=== PATIENT | female | born 1995 | race African-American/Black ===

== ENCOUNTER 2017-09-14 11:41 | Emergency (ER) | payer OTHER ==
[~2017-09-14] VITALS: Ht 162.6 cm; Wt 115.9 kg
[2017-09-14] MEDS ORDERED: IBUPROFEN 800 MG TABLET PO ONE (12:45)
[2017-09-14 12:49] VITALS: BP 119/63
== END 2017-09-14 12:58 | disposition home or self-care (01) ==
LOC: EMS 11:43
DX: K64.4 Residual hemorrhoidal skin tags (principal); R03.0 Elevated blood-pressure reading, without diagnosis of hypertension; Z91.018 Allergy to other foods
CPT/HCPCS: 99283

== ENCOUNTER 2024-07-10 20:08 | Emergency (ER) | payer OTHER ==
[~2024-07-10] VITALS: Ht 165.1 cm; Wt 100.0 kg
[2024-07-10 20:19] VITALS: BP 104/82; PULSE 73; RESP 18; TEMP 98.4; O2SAT 98
== END 2024-07-10 23:20 | disposition home or self-care (01) ==
LOC: EMS 20:08
DX: S93.601A Unspecified sprain of right foot, initial encounter (principal); Z91.018 Allergy to other foods; W01.0XXA Fall on same level from slipping, tripping and stumbling without subsequent striking against object, initial encounter; Y93.89 Activity, other specified; Y92.89 Other specified places as the place of occurrence of the external cause; Y99.8 Other external cause status
CPT/HCPCS: 99284; 73610-TC; 73630-TC; Z7502